=== PATIENT | male | born 1995 | race African-American/Black ===

== ENCOUNTER 2017-06-27 08:14 | Emergency (ER) | payer SELFPAY ==
[~2017-06-27] VITALS: Ht 165.1 cm; Wt 81.6 kg
[~2017-06-27 08:14] MED LIST: AMOXICILLIN500 M2 PO; CLARITIN-D 10 M1 T21 PO; HYDROCODONE BIT1 T11 PO; LODINE500 MG PO; MOTRIN100 MG/5 M PO; MOTRIN600 MG PO; TYLENOL325 M1 PO; ZITHROMAX Z PA250 MG PO
[2017-06-27 08:53] LABS: BASO % 0.2 % (0.0-1.0); EOS # 0.3 10*3/uL (0.0-0.4); EOS % 5.1 % (1.0-4.0); HEMATOCRIT 41.7 % (42.0-52.0); HEMOGLOBIN 13.3 g/dl (14.0-18.0); LYMPH # 1.6 10*3/uL (1.3-4.4); LYMPH % 29.2 % (27.0-41.0); MEAN CORPUSCULAR HGB 27.4 pg (27.0-31.0); MEAN CORPUSCULAR HGB CONC 31.9 g/dl (33.0-37.0); MONO # 0.5 10*3/uL (0.1-1.0); MONO % 8.9 % (3.0-9.0); NEUT % 56.4 % (47.0-73.0); PLATELET COUNT AUTOMATED 253 10*3/uL (130-400); RED BLOOD COUNT 4.85 10*6/uL (4.50-5.90); RED CELL DISTRI WIDTH 13.4 % (0-14.5); WHITE BLOOD COUNT 5.3 10*3/uL (4.8-10.8)
[2017-06-27 09:05] LABS: BILIRUBIN NEGATIVE (NEGATIVE); BLOOD NEGATIVE (NEGATIVE); CLARITY CLEAR (CLEAR); COLOR YELLOW (YELLOW); GLUCOSE NEGATIVE (NEGATIVE); KETONE NEGATIVE (NEGATIVE); LEUKO ESTERASE NEGATIVE (NEGATIVE); NITRITE NEGATIVE (NEGATIVE); PH 6.5 (5.0-9.0); SPECIFIC GRAVITY 1.025 (1.005-1.030); UROBILINOGEN 0.2 E.U./dl (0.2-1.0)
[2017-06-27 09:08] LABS: ALBUMIN 4.3 gm/dl (3.1-4.5); ALKALINE PHOSPHATASE 82 U/L (45-117); BUN 12 mg/dl (7-24); CHLORIDE 105 mmol/L (98-107); CREATININE 1.01 mg/dL (0.70-1.30); POTASSIUM 4.3 mmol/L (3.5-5.1); SGOT/AST 28 IU/L (3-35); SGPT/ALT 27 U/L (12-78); SODIUM 139 mmol/L (136-145); TOTAL PROTEIN 7.9 gm/dL (6.4-8.2)
[2017-06-27 09:14] LABS: EPITHELIAL CELLS 0-2; URINE AMPHETAMINES < 1000 (1000ng/ml); URINE BARBITURATES < 200 (200ng/ml); URINE BENZODIAZEPINES < 200 (200ng/ml); URINE CANNABINOIDS (THC) > 50 (50ng/ml); URINE COCAINE < 300 (300ng/ml); URINE METHADONE < 300 (300ng/ml); URINE OPIATES < 300 (300ng/ml); WBC 0-2 wbc/hpf (0-5)
[2017-06-27 09:17] LABS: URINE PHENCYCLIDINE < 25 (25ng/ml)
== END 2017-06-27 10:04 | disposition home or self-care (01) ==
LOC: ED 08:14
PROVIDERS: Internal Medicine
DX: R19.5 Other fecal abnormalities (principal)

== ENCOUNTER 2020-02-29 20:08 | Emergency (ER) | payer OTHER ==
[~2020-02-29] VITALS: Ht 193 cm; Wt 77.1 kg
== END 2020-02-29 21:30 | disposition home or self-care (01) ==
LOC: ED 20:08
DX: M79.671 Pain in right foot (principal)

== ENCOUNTER 2021-07-28 10:04 | Emergency (ER) | payer OTHER ==
[~2021-07-28] VITALS: Ht 193 cm; Wt 77.1 kg
[2021-07-28 10:31] LABS: BILIRUBIN Negative (Negative); BLOOD Negative (Negative); CLARITY Clear (Clear); COLOR Yellow (Yellow); GLUCOSE Negative (Negative); KETONE Negative (Negative); LEUKO ESTERASE Negative (Negative); NITRITE Negative (Negative); PH 6.5 (4.5-8.0); UROBILINOGEN 0.2 E.U./dl (0.0-1.0)
[2021-07-28 10:47] LABS: BACTERIA TRACE; EPITHELIAL CELLS 0-2; MUCOUS 1+; RBC 0-2 rbc/hpf (0-2); WBC 0-2 wbc/hpf (0-5)
== END 2021-07-28 10:45 | disposition home or self-care (01) ==
LOC: ED 10:04
PROVIDERS: Emergency Medicine
DX: L24.9 Irritant contact dermatitis, unspecified cause (principal)